=== PATIENT | male | born 1975 | race Caucasian/White ===

== ENCOUNTER 2022-11-08 06:33 | Day surgery (SDC) | payer OTHER ==
[~2022-11-08] VITALS: Ht 188 cm; Wt 110.6 kg
[2022-11-08] MEDS ORDERED: PROTONIX 40MG T40 MG PO (06:59)
[2022-11-08] MEDS ORDERED: CRESTOR 10MG10 MG PO (07:00)
[2022-11-08] MEDS ORDERED: ZYRTEC 10MG10 MG PO (07:00)
[2022-11-08] MEDS ORDERED: TYLENOL 325MG325 MG PO (07:01)
[2022-11-08] MEDS ORDERED: MOTRIN 800800 MG/TAB PO (07:01)
[2022-11-08 07:23] VITALS: BP 138/100; PULSE 62; TEMP 97.3
[2022-11-08 08:00] VITALS: BP 142/99; PULSE 71; TEMP 97.8
[2022-11-08 08:15] VITALS: BP 136/95; PULSE 63
--- NOTE | 2022-11-08 15:03 | NUR ---
[id number]: PT TO RECOVERY BAY 3 FROM [facility] S/P EGD WITH BIOPSIES A&O, AMBULATED WITH STANDBY ASSIST TO CHAIR, PLACED ON MONITOR, VSS ON RA RECEIVED REPORT AND ASSUMED CARE OF PT FROM PARKER KC AT BEDSIDE PROVIDED WATER, TOLERATING WELL MD IN TO SEE PT POST PROCEEDURE PT HAS REMAINED A&O, NAD, VSS ON RA, TOLERATING PO, IS WITHOUT SIGNIFICANT COMPLAINT, WITH STEADY GAIT THRU OUT STAY IV D/C'D. D/C INSTRUCTIONS, ANY FOLLOW UP REVIEWED AND HANDED TO PT. ALL QUESTIONS AND CONCERNS ADDRESSED TO PT SATISFACTION. TAKEN TO EXIT VIA W/C WITH ALL BELONGINGS AND PAPERWORK IN HAND, ASSISTED INTO PASSENGER SEAT OF POV. TO DRIVE HOME.
== END 2022-11-08 08:30 | disposition home or self-care (01) ==
LOC: SDCO 06:33
DX: K21.9 Gastro-esophageal reflux disease without esophagitis (principal); D12.6 Benign neoplasm of colon, unspecified; J32.8 Other chronic sinusitis; Z79.899 Other long term (current) drug therapy; Z80.0 Family history of malignant neoplasm of digestive organs
CPT/HCPCS: J2704; J7120